=== PATIENT | male | born 1960 | race Caucasian/White ===

== ENCOUNTER 2019-11-20 08:55 | Day surgery (SDC) | payer OTHER ==
[~2019-11-20] VITALS: Ht 175.3 cm; Wt 86.7 kg
[~2019-11-20 08:55] MED LIST: ALBU90OI61 INH; AMOCLA875 PO; Augmentin 875-1 EACH; CEPH500 PO; CLIN150 PO; CYCL10 PO; ERGO50000 PO; FLUT110OIA IH; FLUT110OIA INH; GABA300; GABA600; HYDACE5 PO; MECL25 PO; NAPR375 PO; OMEP20ER PO; OXYB5; PRED20; PRED20 PO; PROM25 PO; RXCLIN PO; RXOXYACE PO; RXSULTRIDS PO; TRAM50 PO; TRAZ50 PO
--- NOTE | 2019-11-20 09:22 | NUR ---
Ambulatory in Day SurgeryPatient states colon prep results clear. History, Chart, Medications and Allergies reviewed before start of procedure.Lungs clear T/O to Auscultation. Patient confirms NPO status and agrees with scheduled surgery. Pre-Op teaching done. Pt verbalizes understandinG. Patient States Post-Procedure ride home has been arranged.
--- NOTE | 2019-11-20 09:39 | NUR ---
11/20/19 0939 Brittney Christina History, Chart, Medications and Allergies reviewed before start of procedure. Patient confirms NPO status and agrees with scheduled surgery. PATIENT DETERMINED TO BE ASA APPROPRIATE FOR PROPOFOL SEDATION PRIOR TO START OF PROCEDURE BY DR. INGRAM. 3-LEAD EKG REVIEWED WITH PHYSICIAN PRIOR TO START OF PROCEDURE. MONITOR INTACT WITH CONTINUOUS PULSE OXIMETRY AND INTERMITTENT BP.
== END 2019-11-20 10:51 | disposition home or self-care (01) ==
LOC: ORSCMMR 08:55 → ORD 10:00 → ORSCMMR 10:51
PROVIDERS: Internal Medicine Gastroenterology
PROC: 0DBP8ZX Excision of Rectum, Via Natural or Artificial Opening Endoscopic, Diagnostic (ICD-10-PCS; principal; 2019-11-20 10:00)
PROC: 0D5K8ZZ Destruction of Ascending Colon, Via Natural or Artificial Opening Endoscopic (ICD-10-PCS; principal; 2019-11-20 10:00)
PROC: 0DBN8ZX Excision of Sigmoid Colon, Via Natural or Artificial Opening Endoscopic, Diagnostic (ICD-10-PCS; principal; 2019-11-20 10:00)
DX: K62.5 Hemorrhage of anus and rectum (principal); K63.5 Polyp of colon; Q27.33 Arteriovenous malformation of digestive system vessel; F17.210 Nicotine dependence, cigarettes, uncomplicated; J44.9 Chronic obstructive pulmonary disease, unspecified; K21.9 Gastro-esophageal reflux disease without esophagitis; Z79.899 Other long term (current) drug therapy
CPT/HCPCS: 88305; J2704; J7120